=== PATIENT | male | born 1975 | race Two or more races ===

== ENCOUNTER 2019-10-18 01:25 | Emergency (ER) | payer OTHER ==
[~2019-10-18] VITALS: Ht 177.8 cm; Wt 79.8 kg
[2019-10-18] MEDS ORDERED: SODIUM CHLORIDE 0.9% 1,000 ML IV ONE ×2 (03:00→06:15)
[2019-10-18] MEDS ORDERED: THIAMINE INJ 100 MG in SODIUM CHLORIDE 0.9% 1,000 ML IV ONE (04:00)
[2019-10-18] MEDS ORDERED: THIAMINE 100mg/ml INJ (200mg/2ml VIAL) ONE (05:15)
[2019-10-18 05:27] LABS: Basophils # (auto) 0.1 10 ^3/uL (0-0.2); Basophils % (auto) 0.8 % (0.0-2.0); Eosinophils # (auto) 0.1 10 ^3/uL (0-0.8); Eosinophils % (auto) 1.2 % (0.0-7.0); Hemoglobin 8.5 g/dL (13.5-17.5); Lymphocytes # (auto) 0.9 10 ^3/uL (0.4-5.4); Lymphocytes % (auto) 8.6 % (10.0-50.0); Mean Corpuscular Hemoglobin 21.1 pg (28.0-32.0); Mean Corpuscular Hgb Conc. 29.3 g/dL (32.0-36.0); Monocytes # (auto) 0.7 10 ^3/uL (0-1.3); Monocytes % (auto) 7.1 % (0.0-12.0); Neutrophils # (auto) 8.2 10 ^3/uL (1.6-8.6); Neutrophils % (auto) 82.3 % (37.0-80.0); Platelet Count (auto) 430 10^3/uL (140-450); Red Blood Cells 4.03 10^6/uL (4.5-5.90); Red Cell Distribution Width 19.5 % (11.8-14.3)
[2019-10-18 05:37] LABS: Urine Bacteria NONE SEEN /hpf (None Seen); Urine Blood Negative /uL (Negative); Urine Hyaline Cast FEW /lpf (0 - 2); Urine Specific Gravity 1.014 (1.001-1.035); Urine WBC 1 /hpf (0 - 3)
[2019-10-18 05:47] LABS: Amphetamine Screen, Urine NEGATIVE (NEGATIVE); Barbiturate Scree,Urine NEGATIVE (NEGATIVE); Benzodiazephine Screen, Urine NEGATIVE (NEGATIVE); Cannabinoid Screen, Urine NEGATIVE (NEGATIVE); Cocaine Screen, Urine NEGATIVE (NEGATIVE); Opiate Scree,Urine NEGATIVE (NEGATIVE); Phencyclidine Screen, Urine NEGATIVE (NEGATIVE)
[2019-10-18 05:49] LABS: Albumin 3.2 g/dL (3.4-5.0); Potassium 3.4 mmol/L (3.5-5.1)
[2019-10-18 05:52] LABS: BUN/Creatinine Ratio 22.2; Bilirubin, Total 0.2 mg/dL (0.2-1.0); Total Protein 6.9 g/dL (6.4-8.2)
[2019-10-18 05:57] LABS: INR 0.96 (0.9-1.15); Partial Thromboplastin Time 29.2 sec (23.64-32.05)
[2019-10-18 09:48] VITALS: BP 130/76
== END 2019-10-18 10:39 | disposition home or self-care (01) ==
LOC: EDBD 01:25 → ER 01:27
DX: F10.129 Alcohol abuse with intoxication, unspecified (principal); Z59.0 Homelessness
CPT/HCPCS: 36415; 80053; 80307; 80320; 81001; 82150; 83690; 85025; 85610; 85730; 96361; 96365; 99285; J3411; J7030

== ENCOUNTER → 2019-11-24 | Emergency (ER) | payer OTHER ==
[~2019-11-24] VITALS: Ht 188 cm; Wt 79.4 kg
[~2019-11-24] MED LIST: ACETAMINOPHEN 325 MG TAB PO ONE; LORazepam 2MG/ML-1ML VIAL ONE; POTASSIUM CHL 20 Meq TABLET PO ONE
[2019-11-24 20:41] VITALS: BP 127/88
[2019-11-24 21:17] LABS: Eosinophils # (auto) 0.1 10 ^3/uL (0-0.8); Hemoglobin 8.4 g/dL (13.5-17.5); Monocytes # (auto) 0.6 10 ^3/uL (0-1.3); Nucleated Red Blood Cells % 0.1 %; White Blood Cell 5.6 10^3/uL (4.4-10.8)
[2019-11-24 21:19] LABS: Basophils # (auto) 0 10 ^3/uL (0-0.2); Basophils % (auto) 0.9 % (0.0-2.0); Eosinophils % (auto) 1.3 % (0.0-7.0); Hematocrit 28.5 % (41.0-53.0); Lymphocytes # (auto) 1.5 10 ^3/uL (0.4-5.4); Lymphocytes % (auto) 26.9 % (10.0-50.0); Mean Corpuscular Hemoglobin 21.1 pg (28.0-32.0); Mean Corpuscular Hgb Conc. 29.4 g/dL (32.0-36.0); Mean Corpuscular Volume 71.8 fL (80.0-100.0); Monocytes % (auto) 10.7 % (0.0-12.0); Neutrophils # (auto) 3.3 10 ^3/uL (1.6-8.6); Neutrophils % (auto) 60.2 % (37.0-80.0); Platelet Count (auto) 319 10^3/uL (140-450); Red Blood Cells 3.97 10^6/uL (4.5-5.90)
[2019-11-24 21:23] LABS: Red Cell Distribution Width 22.2 % (11.8-14.3)
[2019-11-24 21:31] LABS: INR 0.96 (0.9-1.15); Partial Thromboplastin Time 27.6 sec (23.64-32.05)
[2019-11-24 21:33] LABS: Chloride 105 mmol/L (98-107); Potassium 3.3 mmol/L (3.5-5.1); Sodium 139 mmol/L (136-145)
[2019-11-24 21:35] LABS: Alanine Aminotransferase 21 U/L (16-61); Amylase 73 U/L (25-115); Anion Gap 7 (5-15); Aspartate Aminotransferase 16 U/L (15-37); BUN/Creatinine Ratio 16.7; Blood Alcohol < 3.0 mg/dL (0-5); Blood Urea Nitrogen 10 mg/dL (7-18); Carbon Dioxide 27 mmol/L (21-32); GFR African American 190 mL/min; GFR Non-African American 157 mL/min; Glucose 118 mg/dL (74-106); Lipase 140 U/L (73-393)
[2019-11-24 21:38] LABS: Alkaline Phosphatase 117 U/L (45-117); Bilirubin, Total 0.2 mg/dL (0.2-1.0); Total Protein 7.2 g/dL (6.4-8.2)
== END | disposition home or self-care (01) ==
LOC: ER 19:57
DX: K59.00 Constipation, unspecified (principal); D64.9 Anemia, unspecified; L03.032 Cellulitis of left toe; E87.6 Hypokalemia; K44.9 Diaphragmatic hernia without obstruction or gangrene; F15.10 Other stimulant abuse, uncomplicated; Z71.51 Drug abuse counseling and surveillance of drug abuser
CPT/HCPCS: 36415; 74176; 80053; 80320; 82150; 83690; 85025; 85610; 85730

== ENCOUNTER 2019-11-26 16:23 | Emergency (ER) | payer OTHER ==
[~2019-11-26] VITALS: Ht 188 cm; Wt 90.7 kg
[2019-11-26] MEDS ORDERED: SODIUM CHLORIDE 0.9% 1,000 ML IVB ONE (16:36)
[2019-11-26 17:05] LABS: Basophils # (auto) 0.1 10 ^3/uL (0-0.2); Eosinophils # (auto) 0.1 10 ^3/uL (0-0.8); Hemoglobin 8.8 g/dL (13.5-17.5); Mean Corpuscular Hemoglobin 21.1 pg (28.0-32.0)
[2019-11-26 17:06] LABS: Basophils % (auto) 1.4 % (0.0-2.0); Eosinophils % (auto) 1.7 % (0.0-7.0); Hematocrit 29.8 % (41.0-53.0); Lymphocytes # (auto) 1.5 10 ^3/uL (0.4-5.4); Lymphocytes % (auto) 27.6 % (10.0-50.0); Mean Corpuscular Hgb Conc. 29.4 g/dL (32.0-36.0); Mean Corpuscular Volume 71.7 fL (80.0-100.0); Monocytes # (auto) 0.5 10 ^3/uL (0-1.3); Monocytes % (auto) 8.7 % (0.0-12.0); Neutrophils # (auto) 3.4 10 ^3/uL (1.6-8.6); Neutrophils % (auto) 60.6 % (37.0-80.0); Platelet Count (auto) 305 10^3/uL (140-450); Red Blood Cells 4.16 10^6/uL (4.5-5.90); White Blood Cell 5.6 10^3/uL (4.4-10.8)
[2019-11-26] MEDS ORDERED: LORazepam 2MG/ML-1ML VIAL IV ONE (17:15)
[2019-11-26 17:21] LABS: Calcium 8.1 mg/dL (8.5-10.1); Potassium 3.5 mmol/L (3.5-5.1)
[2019-11-26 17:25] LABS: Amphetamine Screen, Urine NEGATIVE (NEGATIVE); Barbiturate Scree,Urine NEGATIVE (NEGATIVE); Benzodiazephine Screen, Urine NEGATIVE (NEGATIVE); Cannabinoid Screen, Urine NEGATIVE (NEGATIVE); Cocaine Screen, Urine NEGATIVE (NEGATIVE); Opiate Scree,Urine NEGATIVE (NEGATIVE); Phencyclidine Screen, Urine NEGATIVE (NEGATIVE)
[2019-11-26 17:30] LABS: BUN/Creatinine Ratio 17.9; Bilirubin, Total 0.2 mg/dL (0.2-1.0); Total Protein 7.2 g/dL (6.4-8.2)
[2019-11-26 17:36] LABS: Red Cell Distribution Width 22.6 % (11.8-14.3)
[2019-11-26] MEDS ORDERED: SODIUM CHLORIDE 0.9% 1,000 ML IV ONE ×2 (19:00→20:30)
[2019-11-26 20:00] VITALS: BP 135/85
== END 2019-11-26 21:05 | disposition left against medical advice (07) ==
LOC: EDUNIT# 16:23 → EDBD 16:23 → ER 16:23
DX: F10.129 Alcohol abuse with intoxication, unspecified (principal); R41.0 Disorientation, unspecified; I10 Essential (primary) hypertension; K21.9 Gastro-esophageal reflux disease without esophagitis; Y90.9 Presence of alcohol in blood, level not specified
CPT/HCPCS: 36415; 80053; 80307; 80320; 85025; 96361; 96374; 99285; J2060; J7030

== ENCOUNTER 2019-12-05 02:10 | Emergency (ER) | payer OTHER ==
[~2019-12-05] VITALS: Ht 188 cm; Wt 79.4 kg
[2019-12-05 03:07] LABS: Basophils # (auto) 0.1 10 ^3/uL (0-0.2); Eosinophils # (auto) 0.1 10 ^3/uL (0-0.8); Hematocrit 28.7 % (41.0-53.0); Monocytes # (auto) 0.5 10 ^3/uL (0-1.3); White Blood Cell 5.6 10^3/uL (4.4-10.8)
[2019-12-05 03:09] LABS: Basophils % (auto) 1.5 % (0.0-2.0); Hemoglobin 8.6 g/dL (13.5-17.5); Lymphocytes # (auto) 1.2 10 ^3/uL (0.4-5.4); Lymphocytes % (auto) 22.1 % (10.0-50.0); Mean Corpuscular Hemoglobin 21.2 pg (28.0-32.0); Mean Corpuscular Volume 70.7 fL (80.0-100.0); Monocytes % (auto) 9.6 % (0.0-12.0); Neutrophils # (auto) 3.7 10 ^3/uL (1.6-8.6); Neutrophils % (auto) 65.8 % (37.0-80.0); Nucleated Red Blood Cells % 0.1 %; Platelet Count (auto) 423 10^3/uL (140-450); Red Blood Cells 4.06 10^6/uL (4.5-5.90)
[2019-12-05 03:10] LABS: Red Cell Distribution Width 23.5 % (11.8-14.3)
[2019-12-05 03:21] LABS: INR 1.02 (0.9-1.15); Partial Thromboplastin Time 28.8 sec (23.64-32.05)
[2019-12-05 03:25] LABS: Alanine Aminotransferase 33 U/L (16-61); Albumin 3.3 g/dL (3.4-5.0); Anion Gap 8 (5-15); Aspartate Aminotransferase 29 U/L (15-37); BUN/Creatinine Ratio 21.9; Blood Urea Nitrogen 14 mg/dL (7-18); Calcium 8.1 mg/dL (8.5-10.1); Carbon Dioxide 23 mmol/L (21-32); Chloride 103 mmol/L (98-107); GFR African American 176 mL/min; GFR Non-African American 146 mL/min; Glucose 105 mg/dL (74-106); Potassium 3.6 mmol/L (3.5-5.1); Sodium 134 mmol/L (136-145)
[2019-12-05 03:29] LABS: Alkaline Phosphatase 104 U/L (45-117); Bilirubin, Total 0.3 mg/dL (0.2-1.0); Total Protein 7.5 g/dL (6.4-8.2)
[2019-12-05 05:00] VITALS: BP 118/77
== END 2019-12-05 06:15 | disposition home or self-care (01) ==
LOC: ER 02:11
DX: F19.10 Other psychoactive substance abuse, uncomplicated (principal); K21.9 Gastro-esophageal reflux disease without esophagitis; I10 Essential (primary) hypertension; F17.210 Nicotine dependence, cigarettes, uncomplicated
CPT/HCPCS: 36415; 70450; 71045; 80053; 82728; 84484; 85025; 85610; 85730; 93005

== ENCOUNTER 2019-12-26 05:16 | Emergency (ER) | payer OTHER ==
[~2019-12-26] VITALS: Ht 188 cm; Wt 79.4 kg
[2019-12-26 05:45] VITALS: BP 138/93
== END 2019-12-26 07:49 | disposition left against medical advice (07) ==
LOC: ER 05:16
DX: R53.83 Other fatigue (principal); Z53.21 Procedure and treatment not carried out due to patient leaving prior to being seen by health care provider
CPT/HCPCS: 93005

== ENCOUNTER → 2020-01-16 | Emergency (ER) | payer OTHER ==
[~2020-01-16] VITALS: Ht 177.8 cm; Wt 69.9 kg
[2020-01-16 05:00] VITALS: BP 133/79
[2020-01-16 05:30] LABS: Lymphocytes # (auto) 1.2 10 ^3/uL (0.4-5.4); Monocytes # (auto) 0.4 10 ^3/uL (0-1.3); Neutrophils # (auto) 2.5 10 ^3/uL (1.6-8.6); Nucleated Red Blood Cells % 0.1 %
[2020-01-16 05:32] LABS: Basophils # (auto) 0 10 ^3/uL (0-0.2); Basophils % (auto) 0.9 % (0.0-2.0); Eosinophils # (auto) 0.1 10 ^3/uL (0-0.8); Eosinophils % (auto) 1.4 % (0.0-7.0); Hematocrit 31.2 % (41.0-53.0); Hemoglobin 9.5 g/dL (13.5-17.5); Mean Corpuscular Hemoglobin 21.2 pg (28.0-32.0); Mean Corpuscular Hgb Conc. 30.3 g/dL (32.0-36.0); Mean Corpuscular Volume 70.2 fL (80.0-100.0); Monocytes % (auto) 9.2 % (0.0-12.0); Neutrophils % (auto) 60.5 % (37.0-80.0); Platelet Count (auto) 315 10^3/uL (140-450); Red Blood Cells 4.45 10^6/uL (4.5-5.90); White Blood Cell 4.1 10^3/uL (4.4-10.8)
[2020-01-16 05:42] LABS: Urine Bacteria FEW /hpf (None Seen); Urine Blood Negative /uL (Negative); Urine Mucus FEW (None Seen); Urine WBC 1 /hpf (0 - 3)
[2020-01-16 05:49] LABS: Red Cell Distribution Width 22.6 % (11.8-14.3)
[2020-01-16 05:50] LABS: Calcium 8.3 mg/dL (8.5-10.1); Chloride 107 mmol/L (98-107); Potassium 3.5 mmol/L (3.5-5.1); Sodium 138 mmol/L (136-145)
[2020-01-16 05:56] LABS: Alcohol, Urine < 3.0 mg/dL (0-10); Amphetamine Screen, Urine POSITIVE (NEGATIVE); Barbiturate Scree,Urine NEGATIVE (NEGATIVE); Benzodiazephine Screen, Urine NEGATIVE (NEGATIVE); Cannabinoid Screen, Urine POSITIVE (NEGATIVE); Cocaine Screen, Urine NEGATIVE (NEGATIVE); Opiate Scree,Urine NEGATIVE (NEGATIVE); Phencyclidine Screen, Urine NEGATIVE (NEGATIVE)
[2020-01-16 05:56] LABS: Alanine Aminotransferase 42 U/L (16-61); Alkaline Phosphatase 117 U/L (45-117); Amylase 57 U/L (25-115); Anion Gap 5 (5-15); Aspartate Aminotransferase 30 U/L (15-37); BUN/Creatinine Ratio 23.1; Bilirubin, Total 0.4 mg/dL (0.2-1.0); Blood Alcohol < 3.0 mg/dL (0-5); Blood Urea Nitrogen 15 mg/dL (7-18); Carbon Dioxide 26 mmol/L (21-32); GFR African American 173 mL/min; GFR Non-African American 143 mL/min; Glucose 98 mg/dL (74-106); Lipase 162 U/L (73-393); Magnesium 2.2 mg/dL (1.6-2.6); Total Protein 6.3 g/dL (6.4-8.2)
== END | disposition home or self-care (01) ==
LOC: EDUNIT# 03:40 → EDBD 03:50 → ER 03:50
DX: R10.9 Unspecified abdominal pain (principal); Z53.21 Procedure and treatment not carried out due to patient leaving prior to being seen by health care provider
CPT/HCPCS: 36415; 74176; 80053; 80307; 80320; 81001; 82150; 83690; 83735; 84484; 85025

== ENCOUNTER → 2020-04-13 | Emergency (ER) | payer OTHER ==
[~2020-04-13] VITALS: Ht 182.9 cm; Wt 4.5 kg
[2020-04-13 16:29] VITALS: BP 115/64
== END | disposition left against medical advice (07) ==
LOC: EDUNIT# 16:11 → EDBD 16:15 → ER 16:15
DX: R53.1 Weakness (principal); R42 Dizziness and giddiness; Z53.21 Procedure and treatment not carried out due to patient leaving prior to being seen by health care provider

== ENCOUNTER → 2021-01-15 | Emergency (ER) | payer OTHER ==
[~2021-01-15] VITALS: Ht 188 cm; Wt 83.9 kg
[~2021-01-15] MED LIST changes: -ACETAMINOPHEN 325 MG TAB PO ONE; +ALUM & MAG HYDROX-SIMETH LIQ(MAALOX) 30 ML PO ONE; -LORazepam 2MG/ML-1ML VIAL ONE; -POTASSIUM CHL 20 Meq TABLET PO ONE
[2021-01-15 04:40] VITALS: BP 142/94
== END | disposition left against medical advice (07) ==
LOC: EDUNIT# 04:17 → EDBD 04:28 → ER 04:28
DX: R11.2 Nausea with vomiting, unspecified (principal); R07.9 Chest pain, unspecified; Z53.21 Procedure and treatment not carried out due to patient leaving prior to being seen by health care provider
CPT/HCPCS: 71045; 93005

== ENCOUNTER 2021-01-22 15:55 | Emergency (ER) | payer OTHER ==
[~2021-01-22] VITALS: Ht 172.7 cm; Wt 77.1 kg
[2021-01-22 15:57] VITALS: BP 120/68
[2021-01-22] MEDS ORDERED: SODIUM CHLORIDE 0.9% 1,000 ML IVB ONE (16:15)
[2021-01-22 16:26] LABS: Basophils # (auto) 0 10 ^3/uL (0-0.2); Basophils % (auto) 0.7 % (0.0-2.0); Eosinophils # (auto) 0.1 10 ^3/uL (0-0.8); Eosinophils % (auto) 1.6 % (0.0-7.0); Hematocrit 24.9 % (41.0-53.0); Hemoglobin 7.9 g/dL (13.5-17.5); Lymphocytes # (auto) 1.6 10 ^3/uL (0.4-5.4); Lymphocytes % (auto) 34.5 % (10.0-50.0); Mean Corpuscular Hemoglobin 23.4 pg (28.0-32.0); Mean Corpuscular Hgb Conc. 31.6 g/dL (32.0-36.0); Mean Corpuscular Volume 74.1 fL (80.0-100.0); Monocytes # (auto) 0.3 10 ^3/uL (0-1.3); Monocytes % (auto) 5.8 % (0.0-12.0); Neutrophils # (auto) 2.7 10 ^3/uL (1.6-8.6); Neutrophils % (auto) 57.4 % (37.0-80.0); Platelet Count (auto) 361 10^3/uL (140-450); Red Blood Cells 3.36 10^6/uL (4.5-5.90); White Blood Cell 4.7 10^3/uL (4.4-10.8)
[2021-01-22 16:50] LABS: Albumin 2.7 g/dL (3.4-5.0); BUN/Creatinine Ratio 11.7; Calcium 7.8 mg/dL (8.5-10.1); Potassium 3.1 mmol/L (3.5-5.1)
[2021-01-22 16:55] LABS: Bilirubin, Total 0.2 mg/dL (0.2-1.0)
== END 2021-01-22 16:47 | disposition left against medical advice (07) ==
LOC: EDUNIT# 15:55 → EDBD 15:55 → ER 15:55
DX: F10.129 Alcohol abuse with intoxication, unspecified (principal); I10 Essential (primary) hypertension; K21.9 Gastro-esophageal reflux disease without esophagitis; F17.210 Nicotine dependence, cigarettes, uncomplicated; Z86.2 Personal history of diseases of the blood and blood-forming organs and certain disorders involving the immune mechanism; Z86.73 Personal history of transient ischemic attack (TIA), and cerebral infarction without residual deficits; Z59.0 Homelessness; Y90.8 Blood alcohol level of 240 mg/100 ml or more
CPT/HCPCS: 36415; 80053; 80320; 85025; 85049

== ENCOUNTER 2021-04-03 01:13 | Emergency (ER) | payer MEDICAID ==
[~2021-04-03] VITALS: Ht 177.8 cm; Wt 77.1 kg
[2021-04-03 01:30] VITALS: BP 144/87
== END 2021-04-03 02:03 | disposition left against medical advice (07) ==
LOC: ER 01:13 → EDBD 01:13 → EDUNIT# 01:13 → ER 02:03
DX: R10.30 Lower abdominal pain, unspecified (principal); R11.2 Nausea with vomiting, unspecified; Z53.21 Procedure and treatment not carried out due to patient leaving prior to being seen by health care provider

== ENCOUNTER 2021-04-04 18:46 | Emergency (ER) | payer MEDICAID, OTHER ==
[~2021-04-04] VITALS: Ht 172.7 cm; Wt 79.8 kg
[2021-04-04] MEDS ORDERED: FOLIC ACID 1 MG, MULTIPLE VITAMIN 10 ML, MAGNESIUM SULF SDV 50% 8 MEQ, THIAMINE INJ 100... INJ STA ×5 (19:49)
[2021-04-04] MEDS ORDERED: FAMOTIDINE (10MG/ML) 2ML VL IV ONE (20:00)
[2021-04-04] MEDS ORDERED: ONDANSETRON HCL 4 MG/2 ML VIAL IV ONE (20:00)
[2021-04-04 20:23] LABS: Hemoglobin 7.4 g/dL (13.5-17.5); Nucleated Red Blood Cells % 0.1 %
[2021-04-04 20:25] LABS: Basophils # (auto) 0 10 ^3/uL (0-0.2); Eosinophils # (auto) 0.2 10 ^3/uL (0-0.8); Eosinophils % (auto) 3.1 % (0.0-7.0); Hematocrit 24.7 % (41.0-53.0); Lymphocytes # (auto) 1.7 10 ^3/uL (0.4-5.4); Lymphocytes % (auto) 32.3 % (10.0-50.0); Mean Corpuscular Hgb Conc. 30.1 g/dL (32.0-36.0); Mean Corpuscular Volume 69.8 fL (80.0-100.0); Monocytes # (auto) 0.7 10 ^3/uL (0-1.3); Monocytes % (auto) 12.9 % (0.0-12.0); Neutrophils # (auto) 2.7 10 ^3/uL (1.6-8.6); Neutrophils % (auto) 51.7 % (37.0-80.0); Red Blood Cells 3.53 10^6/uL (4.5-5.90); Red Cell Distribution Width 19.1 % (11.8-14.3); White Blood Cell 5.2 10^3/uL (4.4-10.8)
[2021-04-04 20:50] LABS: Acetaminophen < 2.0 ug/mL (10-30); Alanine Aminotransferase 18 U/L (16-61); Anion Gap 11 (5-15); Aspartate Aminotransferase 12 U/L (15-37); Blood Urea Nitrogen 13 mg/dL (7-18); Calcium 8.3 mg/dL (8.5-10.1); Carbon Dioxide 26 mmol/L (21-32); Chloride 104 mmol/L (98-107); GFR African American 192 mL/min; GFR Non-African American 159 mL/min; Glucose 114 mg/dL (74-106); Magnesium 2.1 mg/dL (1.6-2.6); Potassium 3.2 mmol/L (3.5-5.1); Salicylate 8.6 mg/dL (2.8-20.0); Sodium 141 mmol/L (136-145)
[2021-04-04 20:53] LABS: Alkaline Phosphatase 93 U/L (45-117); Bilirubin, Total < 0.1 mg/dL (0.2-1.0); Total Protein 6.9 g/dL (6.4-8.2)
[2021-04-04] MEDS ORDERED: MVI in SODIUM CHLORIDE 0.9% 1,010 ML ONE (21:04)
[2021-04-04] MEDS ORDERED: THIAMINE 100mg/ml INJ (200mg/2ml VIAL) ONE (21:04)
[2021-04-04] MEDS ORDERED: ALUM & MAG HYDROX-SIMETH LIQ(MAALOX) 30 ML PO ONE (21:30)
[2021-04-04] MEDS ORDERED: POTASSIUM CHL 20 Meq TABLET PO ONE (21:30)
[2021-04-05 00:35] LABS: Urine Bacteria NONE SEEN /hpf (None Seen); Urine Blood Negative /uL (Negative); Urine Specific Gravity 1.007 (1.001-1.035); Urine WBC 1 /hpf (0 - 3)
[2021-04-05 00:51] LABS: Amphetamine Screen, Urine NEGATIVE (NEGATIVE); Barbiturate Scree,Urine NEGATIVE (NEGATIVE); Benzodiazephine Screen, Urine NEGATIVE (NEGATIVE); Cannabinoid Screen, Urine NEGATIVE (NEGATIVE); Cocaine Screen, Urine NEGATIVE (NEGATIVE); Opiate Scree,Urine NEGATIVE (NEGATIVE); Phencyclidine Screen, Urine NEGATIVE (NEGATIVE)
[2021-04-05 06:19] VITALS: BP 141/74
== END 2021-04-05 06:52 | disposition home or self-care (01) ==
LOC: EDBD 18:46 → EDUNIT# 18:46 → ER 18:52
DX: K29.70 Gastritis, unspecified, without bleeding (principal); F10.129 Alcohol abuse with intoxication, unspecified; K21.9 Gastro-esophageal reflux disease without esophagitis; I10 Essential (primary) hypertension; F17.210 Nicotine dependence, cigarettes, uncomplicated; F15.10 Other stimulant abuse, uncomplicated; Z59.0 Homelessness; Z86.73 Personal history of transient ischemic attack (TIA), and cerebral infarction without residual deficits; Y90.8 Blood alcohol level of 240 mg/100 ml or more
CPT/HCPCS: 36415; 80053; 80307; 80320; 80329; 81001; 83690; 83735; 85025; 93005; 96365; 96366; 96375; 99284; J2405; J3411; J3475; J3490; J7030

== ENCOUNTER 2021-04-08 00:54 | Emergency (ER) | payer MEDICAID ==
[~2021-04-08] VITALS: Ht 182.9 cm; Wt 71.8 kg
[2021-04-08 01:26] VITALS: BP 153/86
== END 2021-04-08 03:15 | disposition left against medical advice (07) ==
LOC: ER 00:54 → EDBD 00:54 → ER 03:15
DX: R07.9 Chest pain, unspecified (principal); Z53.21 Procedure and treatment not carried out due to patient leaving prior to being seen by health care provider
CPT/HCPCS: 93005

== ENCOUNTER 2022-05-15 06:03 | Emergency (ER) | payer MEDICAID ==
[~2022-05-15] VITALS: Ht 188 cm; Wt 69.6 kg
[2022-05-15 06:47] VITALS: BP 133/76
[2022-05-15 07:52] LABS: Basophils # (auto) 0.1 10 ^3/uL (0-0.2); Eosinophils # (auto) 0.2 10 ^3/uL (0-0.8); Monocytes # (auto) 0.4 10 ^3/uL (0-1.3); Red Cell Distribution Width 20.6 % (11.8-14.3)
[2022-05-15 07:56] LABS: Basophils % (auto) 2.2 % (0.0-2.0); Eosinophils % (auto) 3.3 % (0.0-7.0); Hemoglobin 7.9 g/dL (13.5-17.5); Lymphocytes % (auto) 19.9 % (10.0-50.0); Mean Corpuscular Hemoglobin 20.6 pg (28.0-32.0); Mean Corpuscular Hgb Conc. 30.3 g/dL (32.0-36.0); Mean Corpuscular Volume 67.9 fL (80.0-100.0); Monocytes % (auto) 7.1 % (0.0-12.0); Neutrophils # (auto) 3.4 10 ^3/uL (1.6-8.6); Neutrophils % (auto) 67.5 % (37.0-80.0); Nucleated Red Blood Cells % 0.2 %; Red Blood Cells 3.82 10^6/uL (4.5-5.90); White Blood Cell 5.1 10^3/uL (4.4-10.8)
[2022-05-15 08:16] LABS: Calcium 8.7 mg/dL (8.5-10.1); Potassium 3.9 mmol/L (3.5-5.1)
[2022-05-15 08:19] LABS: BUN/Creatinine Ratio 30.3; Bilirubin, Total 0.3 mg/dL (0.2-1.0)
[2022-05-15] MEDS ORDERED: FER325T PO (09:00)
== END 2022-05-15 09:13 | disposition home or self-care (01) ==
LOC: ER 06:03
DX: D64.9 Anemia, unspecified (principal); I10 Essential (primary) hypertension; K21.9 Gastro-esophageal reflux disease without esophagitis; F17.210 Nicotine dependence, cigarettes, uncomplicated; Z86.2 Personal history of diseases of the blood and blood-forming organs and certain disorders involving the immune mechanism; Z86.73 Personal history of transient ischemic attack (TIA), and cerebral infarction without residual deficits; Z59.00 Homelessness unspecified
CPT/HCPCS: 36415; 80053; 85025

== ENCOUNTER 2022-11-25 23:24 | Emergency (ER) | payer MEDICAID ==
[~2022-11-25] VITALS: Ht 177.8 cm; Wt 81.8 kg
[~2022-11-25 23:24] MED LIST changes: -ALUM & MAG HYDROX-SIMETH LIQ(MAALOX) 30 ML PO ONE; +FER325T PO
[2022-11-26] MEDS ORDERED: MAALOX PLUS or MAALOX 30 ML PO ONE (00:30)
[2022-11-26] MEDS ORDERED: LIDOCAINE VISCOUS 2% 15ML UD PO ONE (00:30)
[2022-11-26 01:20] LABS: Basophils # (auto) 0 10 ^3/uL (0-0.2); Eosinophils # (auto) 0.1 10 ^3/uL (0-0.8); Lymphocytes # (auto) 0.8 10 ^3/uL (0.4-5.4); Monocytes # (auto) 0.5 10 ^3/uL (0-1.3); Nucleated Red Blood Cells % 0.1 %; Red Cell Distribution Width 19.7 % (11.8-14.3)
[2022-11-26 01:21] LABS: Basophils % (auto) 0.7 % (0.0-2.0); Eosinophils % (auto) 1.2 % (0.0-7.0); Hematocrit 26.5 % (41.0-53.0); Hemoglobin 8.3 g/dL (13.5-17.5); Lymphocytes % (auto) 16.4 % (10.0-50.0); Mean Corpuscular Hemoglobin 23.8 pg (28.0-32.0); Mean Corpuscular Hgb Conc. 31.3 g/dL (32.0-36.0); Mean Corpuscular Volume 76.1 fL (80.0-100.0); Monocytes % (auto) 9.6 % (0.0-12.0); Neutrophils # (auto) 3.6 10 ^3/uL (1.6-8.6); Neutrophils % (auto) 72.1 % (37.0-80.0); Red Blood Cells 3.49 10^6/uL (4.5-5.90)
[2022-11-26 01:39] LABS: Albumin 3.3 g/dL (3.4-5.0); BUN/Creatinine Ratio 28.3 (10.0-20.0); Calcium 8.6 mg/dL (8.5-10.1)
[2022-11-26 01:42] LABS: Bilirubin, Total 0.2 mg/dL (0.2-1.0); Total Protein 7.9 g/dL (6.4-8.2)
[2022-11-26 01:58] LABS: Potassium 2.9 mmol/L (3.5-5.1)
[2022-11-26] MEDS ORDERED: POTASSIUM EFFERVESENT TAB 25 MEQ PO ONE (02:15)
[2022-11-26 05:10] LABS: Urine Bacteria NONE SEEN /hpf (None Seen); Urine Blood Negative /uL (Negative); Urine Mucus FEW (None Seen); Urine Specific Gravity 1.014 (1.001-1.035); Urine WBC 4 /hpf (0 - 3)
[2022-11-26 06:11] VITALS: BP 137/86
== END 2022-11-26 06:13 | disposition home or self-care (01) ==
LOC: ER 23:24 → EDBD 23:24 → EDUNIT# 23:24 → ER 11-26 06:13
DX: D64.9 Anemia, unspecified (principal); F10.129 Alcohol abuse with intoxication, unspecified; F19.10 Other psychoactive substance abuse, uncomplicated; K21.9 Gastro-esophageal reflux disease without esophagitis; I10 Essential (primary) hypertension; F17.210 Nicotine dependence, cigarettes, uncomplicated; R51.9 Headache, unspecified; F15.10 Other stimulant abuse, uncomplicated; Z86.73 Personal history of transient ischemic attack (TIA), and cerebral infarction without residual deficits; Z71.51 Drug abuse counseling and surveillance of drug abuser; Z59.00 Homelessness unspecified; Y90.8 Blood alcohol level of 240 mg/100 ml or more
CPT/HCPCS: 36415; 70450; 71250; 74176; 80053; 80320; 81001; 83690; 85025

== ENCOUNTER 2022-12-05 03:01 | Emergency (ER) | payer MEDICAID ==
[~2022-12-05] VITALS: Ht 185.4 cm; Wt 90.0 kg
[2022-12-05 08:35] VITALS: BP 138/98
== END 2022-12-05 08:36 | disposition left against medical advice (07) ==
LOC: ER 03:01 → EDBD 03:01 → ER 08:36
DX: R51.9 Headache, unspecified (principal); Z53.21 Procedure and treatment not carried out due to patient leaving prior to being seen by health care provider
CPT/HCPCS: 70450

== ENCOUNTER 2022-12-08 23:50 | Emergency (ER) | payer MEDICAID ==
[~2022-12-08] VITALS: Ht 188 cm; Wt 72.7 kg
[2022-12-09 00:42] LABS: Basophils # (auto) 0.1 10 ^3/uL (0-0.2); Lymphocytes # (auto) 0.9 10 ^3/uL (0.4-5.4); Neutrophils # (auto) 5.3 10 ^3/uL (1.6-8.6); Nucleated Red Blood Cells % 0.1 %
[2022-12-09 00:44] LABS: Basophils % (auto) 1.6 % (0.0-2.0); Eosinophils # (auto) 0.1 10 ^3/uL (0-0.8); Eosinophils % (auto) 1.8 % (0.0-7.0); Hematocrit 26.5 % (41.0-53.0); Hemoglobin 8.1 g/dL (13.5-17.5); Mean Corpuscular Hemoglobin 22.6 pg (28.0-32.0); Mean Corpuscular Hgb Conc. 30.6 g/dL (32.0-36.0); Mean Corpuscular Volume 73.8 fL (80.0-100.0); Monocytes # (auto) 0.4 10 ^3/uL (0-1.3); Monocytes % (auto) 6.2 % (0.0-12.0); Neutrophils % (auto) 77.4 % (37.0-80.0); Red Blood Cells 3.58 10^6/uL (4.5-5.90); Red Cell Distribution Width 18.7 % (11.8-14.3); White Blood Cell 6.9 10^3/uL (4.4-10.8)
[2022-12-09 01:36] LABS: Albumin 2.9 g/dL (3.4-5.0); BUN/Creatinine Ratio 15.9 (10.0-20.0); Calcium 8.5 mg/dL (8.5-10.1); Potassium 3.2 mmol/L (3.5-5.1)
[2022-12-09 01:39] LABS: Bilirubin, Total 0.1 mg/dL (0.2-1.0); Total Protein 7.4 g/dL (6.4-8.2)
[2022-12-09] MEDS ORDERED: POTASSIUM EFFERVESENT TAB 25 MEQ PO ONE (05:30)
[2022-12-09 06:02] VITALS: BP 174/103
== END 2022-12-09 06:16 | disposition home or self-care (01) ==
LOC: EDBD 23:50 → ER 23:50
DX: F10.129 Alcohol abuse with intoxication, unspecified (principal); E87.6 Hypokalemia; D64.9 Anemia, unspecified; R07.9 Chest pain, unspecified; K21.9 Gastro-esophageal reflux disease without esophagitis; I10 Essential (primary) hypertension; Z86.73 Personal history of transient ischemic attack (TIA), and cerebral infarction without residual deficits; Y90.8 Blood alcohol level of 240 mg/100 ml or more
CPT/HCPCS: 36415; 71045; 80053; 80320; 83880; 84484; 85025; 93005

== ENCOUNTER 2022-12-16 04:03 | Emergency (ER) | payer MEDICAID ==
[~2022-12-16] VITALS: Ht 180.3 cm; Wt 180.0 kg
[2022-12-16 04:03] VITALS: BP 165/89
== END 2022-12-16 06:38 | disposition left against medical advice (07) ==
LOC: EDBD 04:03 → ER 04:03
DX: R10.9 Unspecified abdominal pain (principal); Z53.21 Procedure and treatment not carried out due to patient leaving prior to being seen by health care provider
CPT/HCPCS: 74176